=== PATIENT | female | born 1960 | race Caucasian/White ===

== ENCOUNTER 2016-12-23 21:53 | Emergency (ER) | payer BC ==
[2016-12-23 22:32] LABS: Urine Bilirubin Negative (NEGATIVE); Urine Blood 250 /ul (NEGATIVE); Urine Ketone 5 mg/dL (NEGATIVE); Urine Protein >=300 mg/dL (NEGATIVE); Urine Specific Gravity >=1.030 SP.GR. (1.005-1.010); Urine Urobilinogen Normal (NORMAL)
[2016-12-23 22:41] LABS: Urine Appearance Cloudy; Urine Color Dark Yellow; Urine Nitrite Positive (NEGATIVE)
[2016-12-23 22:42] LABS: Urine Bacteria 3+; Urine RBC 25-50 /hpf (0-5); Urine WBC >50 /hpf (0-5)
--- NOTE | 2016-12-23 22:56 | ERNOTE ---
Abdominal HPI - General Chief Complaint: Genitourinary Problem Time Seen by Provider: 12/23/16 22:48 Source: patient Exam Limitations: no limitations - Immun/Allergies/Home Medications Immunizatons: IMMUNIZATION HX Immunizations Up to Date No History of Influenza Vaccine No Hx Pneumococcal Vaccination No Allergies/Adverse Reactions: Allergies acetaminophen Adverse Reaction (Mild, Verified 12/23/16 22:17) Other Patient reports sensation of bugs crawling on her. Home Medications: HOME MEDICATIONS Calcium [Calcio Danny] 500 mg PO DAILY 08/18/12 [Last Taken Unknown] Lisinopril [Zestril] 10 mg PO DAILY 08/18/12 [Last Taken Unknown] Multivitamin [Multivitamins] 1 each PO DAILY 08/18/12 [Last Taken Unknown] Omeprazole 20 mg PO DAILY 12/23/16 [Last Taken Unknown] Phenazopyridine HCl [Pyridium] 100 mg PO TID #9 tab 12/24/16 [Last Taken Unknown ] Sulfamethoxazole/Trimethoprim [Bactrim Ds] 1 tab PO BID #30 tab 12/24/16 [Last Taken Unknown] - History of Present Illness Narrative: Pt had onset of urethral pain earlier today which progressed to bilateral flank pain tonight Timing: getting worse Quality: moderate, severe, aching, burning Activities at Onset: none Associated Symptoms: Present: back pain, diaphoresis, nausea Prior Abdominal Problems: Present: similar symptoms - 27 years ago and was kidney stone Review of Systems - Review of Systems Constitutional: Absent: recent illness, fever EYE: Present: no symptoms reported ENT: Present: no symptoms reported Respiratory: Absent: shortness of breath Cardiology: Absent: chest pain Gastrointestinal/Abdominal: Present: nausea. Absent: vomiting, diarrhea Genitourinary: Present: frequency, dysuria, hematuria Musculoskeletal: Present: back pain Skin: Absent: rash Neurological: Present: no symptoms reported Endocrine: Absent: excessive sweating, flushing Hematologic/Lymphatic: Present: no symptoms reported Psych: Present: no symptoms reported - Patient's Past Medical History Patient History - Medical: GERD, Kidney stone, UTI'S Patient History - Cardiac/Respiratory: Hypertension Patient History - Cancer: No Hx of Cancer Patient History - Surgical Procedures: Back Surgery, Hysterectomy, Orthopedic Patient History - Other: None LMP (females 10-50): other - Social History Living Situations: home Abuse History: No History of abuse Psych History: No pertinent hx Smoking Status: Current every day smoker Have you smoked in the past 12 months: Yes Do you dip or chew tobacco: No Patient requests Smoking Cessation Consult: No Initiate information on Smoking Cessation: No Alcohol Use: none Drug Use: none - Immunizations Immunizations Up to Date: No Hx Pneumococcal Vaccination: No History of Influenza Vaccine: No Physical Exam - Physical Exam General Appearance: Present: wd/wn, alert, mild distress Head Exam: Present: normal inspection, no evidence of injury Neck: Present: normal inspection, supple, full range of motion Respiratory: Present: no respiratory distress, no accessory muscle use Cardiovascular/Chest: Present: regular rate, rhythm, no murmur Gastrointestinal/Abdominal: Present: normal bowel sounds, tenderness - suprapubic Back Exam: Present: CVA tenderness (R), CVA tenderness (L) Extremity Exam: Present: normal inspection, normal range of motion, no edema Neurological Exam: Present: alert, oriented, normal mood/affect, no motor/ sensory deficits Skin Exam: Present: normal color, warm/dry Lymphatic Exam: Present: no adenopathy ED Progress - Results and Orders Patient's Lab Results:: I have reviewed the patient's lab results. Results and Orders: Laboratory Tests 12/23/16 12/23/16 12/23/16 22:30 23:12 23:12 WBC 10.3 Hgb 13.0 Hct 37.9 Plt Count 252 Sodium 137 Potassium 3.0 L Chloride 100 Carbon Dioxide 29.7 Anion Gap 10.3 BUN 12 Creatinine 0.70 Calcium 9.0 Total Bilirubin 0.6 AST 17 ALT 26 Urine Color Dark yellow Urine Appearance Cloudy Urine pH 6.0 Ur Specific [place] >=1.030 Urine Protein >=300 H Urine Glucose (UA) Negative Urine Ketones 5 Urine Blood 250 H Urine Nitrate Positive H Urine Bilirubin Negative Prot Sulfosalicylic Acd 4+ H Urine Urobilinogen Normal Ur Leukocyte Esterase 100 H Urine RBC 25-50 H Urine WBC >50 H Ur Epithelial Cells 0-5 Urine Bacteria 3+ H Urine Culture Comments Culture to follow - Vital Signs Patient's Vital Signs:: I have reviewed the patient's vital signs. Vital Signs: Vital Signs 12/23/16 22:14 Temperature 37.1 C Pulse Rate 92 Respiratory 15 Rate Blood Pressure 136/101 O2 Sat by Pulse 98 Oximetry - Progress/Reassessment Chief Complaint: Genitourinary Problem Progress Note-Subjective: 12/24/16 01:25 discussed increased urine protein with the patient and the importance of getting her kidneys rechecked in a few days. Pt expressed understanding Departure Clinical Impression: Pyelonephritis - Departure Disposition: Home Follow Up Needed Condition: Good Instructions: Pyelonephritis, Adult, [id number] Additional Instructions: See Dr. Carr as soon as you can this week. If you can't get an appointment I would suggest requesting another urine sample for protein and kidney function blood tests. Drink 2-3 quarts of water daily. Take your antibiotics as directed. Prescriptions: Phenazopyridine HCl [Pyridium] 100 mg PO TID #9 tab Sulfamethoxazole/Trimethoprim [Bactrim Ds] 1 tab PO BID #30 tab
[2016-12-23 23:17] LABS: Hematocrit 37.9 % (37.0-47.0); Mean Cell Volume 87.1 fl (78-100); Mean Corpuscular Hemoglobin 29.9 pg (27-31); Mean Corpuscular Hgb Conc 34.3 g/dl (32-36); Mean Platelet Volume 9.6 fl (6.0-9.5); Neutrophil # 7.3 K/mm3 (1.3-6.0); Neutrophil % 70.6 % (42-75.0); Platelet Count 252 K/mm3 (150-450); Red Blood Count 4.35 M/mm3 (4.2-5.4); Red Cell Distribution Width 12.6 % (11.5-14.0); White Blood Count 10.3 K/mm3 (4.0-10.5)
[2016-12-23 23:31] LABS: Albumin * 3.6 gm/dl (3.4-5.0); Anion Gap 10.3 mmol/L (6.8-13.8); BUN/Creatinine Ratio 17.1 (9.0-21.6); Bilirubin, Total 0.6 mg/dL (0.0-1.1); Carbon Dioxide 29.7 mmol/L (24-32.6)
[2016-12-24] MEDS ORDERED: PHENAZOPYRIDINE HCL 100 MG TABLET PO ONE (01:23)
[2016-12-24] MEDS ORDERED: PHENAZOPYRIDINE HCL 100 MG TABLET ONE (01:23)
[2016-12-24 02:13] VITALS: BP 147/93
== END 2016-12-24 01:37 | disposition home or self-care (01) ==
LOC: ER 21:53
DX: N12 Tubulo-interstitial nephritis, not specified as acute or chronic (principal); K21.9 Gastro-esophageal reflux disease without esophagitis; I10 Essential (primary) hypertension; Z87.442 Personal history of urinary calculi; F17.200 Nicotine dependence, unspecified, uncomplicated